=== PATIENT | male | born 1960 | race Caucasian/White ===

== ENCOUNTER 2020-03-16 13:00 | Outpatient (RCR) | payer MEDICARE ==
[2014-05-12 11:35] VITALS: BP 135/85
[~2020-03-16 13:00] MED LIST: KETOROLAC10 MG PO; OXYCODONE10 MG PO
== END 2020-03-16 13:30 | disposition still patient (30) ==
LOC: PT 13:00
DX: M54.42 Lumbago with sciatica, left side (principal); G89.29 Other chronic pain

== ENCOUNTER 2020-08-20 17:45 | Emergency (ER) | payer BC ==
[~2020-08-20 17:45] MED LIST changes: -CYCLOBENZAPRINE10 M1 PO
[2020-08-20] MEDS ORDERED: CYCLOBENZAPRINE10 M1 PO (19:45)
[2020-08-20 22:03] LABS: URINE APPEARANCE CLEAR; URINE BILIRUBIN NEGATIVE (NEGATIVE); URINE BLOOD NEGATIVE (NEGATIVE); URINE COLOR YELLOW; URINE GLUCOSE NEGATIVE (NEGATIVE); URINE KETONE NEGATIVE (NEGATIVE); URINE LEUKOCYTE ESTERASE NEGATIVE (NEGATIVE); URINE NITRATE NEGATIVE (NEGATIVE); URINE PROTEIN(semi-quant) NEGATIVE (NEGATIVE); URINE UROBILINOGEN NORMAL (NORMAL); URINE WBC 0-1 /hpf (0-3)
[2020-08-20 22:59] VITALS: BP 143/81
== END 2020-08-20 22:47 | disposition home or self-care (01) ==
LOC: ED 17:45
PROVIDERS: Family Medicine
DX: R10.30 Lower abdominal pain, unspecified (principal); G89.29 Other chronic pain; M54.9 Dorsalgia, unspecified; Z79.891 Long term (current) use of opiate analgesic
CPT/HCPCS: J1885

== ENCOUNTER → 2020-08-20 | Outpatient (CLI) | payer MEDICARE ==
[2014-05-12 11:35] VITALS: BP 135/85
[~2020-08-20] MED LIST changes: +CYCLOBENZAPRINE10 M1 PO
[2020-08-20 15:10] LABS: EOS # 0.3 (0.04-0.40); EOS % 3.4 % (0.0-4.0); HEMATOCRIT 44.6 % (42.0-52.0); HEMOGLOBIN 14.8 g/dL (13.5-18.0); LYMPH# 1.7 (1.50-4.00); MEAN CELL VOLUME 87 fl (78-100); MEAN CORPUSCULAR HEMOGLOBIN 29 pg (27-31); MEAN CORPUSCULAR HGB CONC 33 g/dL (33-37); MEAN PLATELET VOLUME 8.5 fl (7.4-10.4); MONO # 0.6 (0.20-0.80); NEU # 5.4 (1.40-6.50); PLATELET COUNT 227 K/mm3 (130-400); RED BLOOD COUNT 5.11 M/mm3 (4.20-5.60); RED CELL DISTRIBUTION WIDTH 13.3 % (11.5-14.5)
[2020-08-20 15:29] LABS: ALBUMIN 4.2 g/dL (3.5-5.0); POTASSIUM 3.8 mmol/L (3.5-5.1)
[2020-08-20 15:30] LABS: CALCIUM 9.3 mg/dL (8.3-10.5)
[2020-08-20 15:31] LABS: TOTAL PROTEIN 6.9 g/dL (6.4-8.3)
[2020-08-20 15:33] LABS: TOTAL BILIRUBIN 0.6 mg/dL (0.2-1.2)
[2020-08-20 17:42] LABS: URINE APPEARANCE HAZY; URINE BILIRUBIN NEGATIVE (NEGATIVE); URINE BLOOD NEGATIVE (NEGATIVE); URINE COLOR YELLOW; URINE GLUCOSE NEGATIVE (NEGATIVE); URINE KETONE NEGATIVE (NEGATIVE); URINE LEUKOCYTE ESTERASE NEGATIVE (NEGATIVE); URINE NITRATE NEGATIVE (NEGATIVE); URINE PROTEIN(semi-quant) NEGATIVE (NEGATIVE); URINE UROBILINOGEN NORMAL (NORMAL)
== END ==
LOC: LAB 14:53
PROVIDERS: Family Medicine
DX: K76.0 Fatty (change of) liver, not elsewhere classified (principal)
CPT/HCPCS: Q9967

== ENCOUNTER → 2022-03-13 | Outpatient (CLI) | payer OTHER, MEDICARE ==
[~2022-03-13] MED LIST changes: +CYCLOBENZAPRINE10 M1 PO
== END ==
LOC: RAD 11:52
DX: M50.30 Other cervical disc degeneration, unspecified cervical region (principal); M51.34 Other intervertebral disc degeneration, thoracic region

== ENCOUNTER → 2022-09-04 | Day surgery (SDC) | payer MEDICARE | END | disposition home or self-care (01) | LOC: MSO 07:30 | DX: K21.9 Gastro-esophageal reflux disease without esophagitis (principal); Z12.11 Encounter for screening for malignant neoplasm of colon; E66.01 Morbid (severe) obesity due to excess calories; Z68.43 Body mass index [BMI] 50.0-59.9, adult | CPT/HCPCS: 00813; J2704; J7120 ==

== ENCOUNTER → 2023-07-06 | Outpatient (CLI) | payer MEDICARE | LOC: RAD 10:30 | DX: K76.0 Fatty (change of) liver, not elsewhere classified (principal) ==

== ENCOUNTER → 2023-12-12 | Outpatient (CLI) | payer MEDICARE | LOC: RAD 06:39 | DX: N28.1 Cyst of kidney, acquired (principal); K76.0 Fatty (change of) liver, not elsewhere classified ==